=== PATIENT | male | born 1980 | race Two or more races ===

== ENCOUNTER 2018-01-23 02:17 | Emergency (ER) | payer SELFPAY ==
--- NOTE | 2018-01-23 03:11 | ER Document Report ---
HPI - HPI Patient complains to provider of: Toothache Pain Level: 5 Context: Patient is a 37-year-old male presenting to the emergency department complaining of right lower tooth pain. Patient states he has had pain for the last 3 days. Patient states he was unable to sleep tonight which is why he presented to the emergency room. States he has not seen a dentist for years. Past Medical History - General Information source: Patient - Social History Smoking Status: Never Smoker Frequency of alcohol use: None Drug Abuse: None Lives with: Family Family History: Reviewed & Not Pertinent Patient has suicidal ideation: No Patient has homicidal ideation: No Renal/ Medical History: Denies: Hx Peritoneal Dialysis Vertical Provider Document - CONSTITUTIONAL Agree With Documented VS: Yes Notes: GENERAL: Alert, interacts well. No acute distress. HEAD: Normocephalic, atraumatic. EYES: Pupils equal, round, and reactive to light. Extraocular movements intact. ENT: Oral mucosa moist, tongue midline. Obvious dental carry tooth #29. No tooth fracture noted. No gum erythema, induration, fluctuance. No facial swelling. NECK: Full range of motion. Supple. Trachea midline. No adenopathy appreciated LUNGS: Clear to auscultation bilaterally, no wheezes, rales, or rhonchi. No respiratory distress. HEART: Regular rate and rhythm. No murmur ABDOMEN: Soft, non-tender. Non-distended. Bowel sounds present in all 4 quadrants. EXTREMITIES: Moves all 4 extremities spontaneously. No edema, normal radial and dorsalis pedis pulses bilaterally. No cyanosis. BACK: no cervical, thoracic, lumbar midline tenderness. No saddle anesthesia, normal distal neurovascular exam. NEUROLOGICAL: Alert and oriented x3. Normal speech. cranial nerves II through XII grossly intact PSYCH: Normal affect, normal mood. SKIN: Warm, dry, normal turgor. No rashes or lesions noted. - INFECTION CONTROL TRAVEL OUTSIDE OF THE [place] IN LAST 30 DAYS: No Course - Re-evaluation Re-evalutation: 01/23/18 03:11 Will give patient antibiotics for dental infection. Will give phone numbers for dental clinic for follow-up. Return precautions given. Patient states he knows that he has hypertension. States he is in a lot of pain at this time. Will give phone numbers for follow-up at [facility]. Patient denies headache, chest pain, shortness of breath. Is only complaining of pinpoint tooth pain. - Vital Signs Vital signs: Temp Pulse Resp BP Pulse Ox 97.6 F 77 16 184/110 H 100 01/23/18 02:33 01/23/18 02:33 01/23/18 02:33 01/23/18 02:33 01/23/18 02:33 Discharge - Discharge Clinical Impression: Toothache, Dental caries Hypertension Qualifiers: Hypertension type: unspecified Qualified Code(s): I10 - Essential (primary) hypertension Condition: Stable Disposition: HOME, SELF-CARE Instructions: [facility], Penicillin V K ([facility]), Toothache ([facility]) Prescriptions: Penicillin V Potassium [Penicillin Vk 500 mg Tablet] 500 mg PO BID #20 tablet Forms: Elevated Blood Pressure, Return to Work Referrals: [facility] [Provider Group] - Follow up as needed
[2018-01-23 03:26] VITALS: BP 176/104
== END 2018-01-23 03:25 | disposition home or self-care (01) ==
LOC: ER 02:17
DX: K02.9 Dental caries, unspecified (principal); K08.89 Other specified disorders of teeth and supporting structures; I10 Essential (primary) hypertension
CPT/HCPCS: 99283